=== PATIENT | male | born 1965 | race African-American/Black ===

== ENCOUNTER → 2017-12-08 | Outpatient (CLI) | payer OTHER | END | disposition home or self-care (01) | LOC: NM 08:19 | DX: I25.10 Atherosclerotic heart disease of native coronary artery without angina pectoris (principal); J45.909 Unspecified asthma, uncomplicated; I25.2 Old myocardial infarction; F17.200 Nicotine dependence, unspecified, uncomplicated; Z88.5 Allergy status to narcotic agent; Z87.448 Personal history of other diseases of urinary system; Z79.01 Long term (current) use of anticoagulants; Z95.0 Presence of cardiac pacemaker | CPT/HCPCS: 78452; 93017; 93306; 96374; 96376; A9500 ==